=== PATIENT | female | born 1990 | race Two or more races ===

== ENCOUNTER 2017-02-27 18:24 | Emergency (ER) | payer SELFPAY ==
[~2017-02-27] VITALS: Ht 162.6 cm; Wt 65.8 kg
[2017-02-27 18:24] VITALS: BP 131/89
== END 2017-02-27 19:24 | disposition home or self-care (01) ==
LOC: ER 19:22
DX: K04.7 Periapical abscess without sinus (principal); Z88.6 Allergy status to analgesic agent
CPT/HCPCS: 99283; A4606; Z7610